=== PATIENT | male | born 1990 | race Caucasian/White ===

== ENCOUNTER 2016-08-08 20:16 | Emergency (ER) | payer OTHER ==
[~2016-08-08 20:16] MED LIST: CLAR10TA13 PO
[2016-08-08 20:18] VITALS: BP 154/78; PULSE 75; RESP 16; TEMP 98.9; O2SAT 100
[2016-08-08] MEDS ORDERED: BACT800T5 PO (20:59)
[2016-08-08] MEDS ORDERED: CEPH-460 PO (20:59)
--- NOTE | 2016-08-08 20:59 | PD ---
HPI Chief Complaint: Lump, Cyst, Hernia Time Seen by Provider: 20:57 Travel History International Travel<30 days: No Contact w/Intl Traveler<30days: No Traveled to known affect area: No History of Present Illness HPI 26-year-old male with no significant medical history presents to the emergency department for evaluation of an abscess in his right axilla. Patient states he noticed it about a week ago. He states today in the shower it began to drain purulent drainage but stopped shortly after starting. Reports pain 6 out of 10 on the area. No fever or chills. No new exposures. No other symptoms to report. PFSH Past Medical History Medical History: Denies Significant Hx Social History Alcohol Use: Yes ("COUPLE DRINKS PER WEEK") Tobacco Use: No Allergies-Medications (Allergen,Severity, Reaction): Coded Allergies: Cat Dander (Verified Allergy, Severe, RESP DISTRESS, 08/08/16) Reported Meds & Prescriptions Reported Meds & Active Scripts Active Ibuprofen 800 Mg Tab 800 Mg PO Q8H PRN Keflex (Cephalexin) 500 Mg Cap 500 Mg PO Q6H 5 Days Bactrim DS (Sulfamethoxazole-Trimethoprim) 800-160 Mg Tab 1 Tab PO BID Review of Systems Except as stated in HPI: all other systems reviewed are Neg Physical Exam Narrative GENERAL: Well-nourished, well-developed patient in no acute distress SKIN: There is an indurated area in the right axilla which measures about 2 cm in diameter. It is minimally fluctuant but there is no pointing or drainage. There is a zone of inflammation around it but no lymphangitis. HEAD: Normocephalic. EYES: No scleral icterus. No injection or drainage. NECK: Supple, trachea midline. No JVD or lymphadenopathy. CARDIOVASCULAR: Regular rate and rhythm without murmurs, gallops, or rubs. RESPIRATORY: Breath sounds equal bilaterally. No accessory muscle use. Data Data Last Documented VS Vital Signs Date Time Temp Pulse Resp B/P Pulse Ox O2 Delivery O2 Flow Rate FiO2 08/08/16 20:18 98.9 75 16 154/78 100 Room Air Orders Sulfamet-Trimeth Ds 800-160 Mg (Bactrim (08/08/16 21:00) Cephalexin (Keflex) (08/08/16 21:00) [facility] Medical Decision Making Medical Screen Exam Complete: Yes Emergency Medical Condition: Yes Medical Record Reviewed: Yes Differential Diagnosis Abscess versus folliculitis versus erysipelas versus contact dermatitis Narrative Course 26-year-old male presents to emergency department for evaluation of an abscess in his right axilla. ID is complete however no purulent drainage is obtained. Culture was not sent. Patient will be started on oral antibiotics. He is encouraged to follow-up with a primary care provider and return immediately with any acute worsening symptoms. Procedures Procedure Narrative INCISION AND DRAINAGE OF ABSCESS: The area was prepped and was sterilely draped. Topical ethyl chloride was used to anesthetize the area. The area was properly anesthetized. A number 11 scalpel was used to make a 1-cm incision across the area of the abscess. Cultures were not obtained. The abscess was drained an irrigated with normal saline. Patient tolerated this well. Diagnosis Primary Impression: Abscess of right axilla Referrals: Primary Care Physician Patient Instructions: Abscess Incision and Drainage (ED), General Instructions Additional Instructions: Warm compresses to the affected area Follow-up with a primary care provider You have been giving you first dose of antibiotics here in the emergency department. Start antibiotics in the morning and take them until they are all gone Return immediately to the emergency department with any acute worsening of symptoms Med/Other Pt SpecificInfo: Prescription(s) given Scripts Ibuprofen 800 Mg [id number] Mg PO Q8H PRN (Pain/Inflammation) #30 TAB Ref 0 Prov:Ariana Hernandez 08/08/16 Cephalexin (Keflex)500 Mg [id number] Mg PO Q6H 5 Days Ref 0 Prov:Ariana Hernandez 08/08/16 Sulfamethoxazole-Trimethoprim (Bactrim DS)800-160 Mg Tab1 Tab PO BID #20 TAB Ref 0 Prov:Ariana Hernandez 08/08/16 Disposition: 01 DISCHARGE HOME Condition: Stable Ariana Hernandez August 08, 2016 20:59
[2016-08-08] MEDS ORDERED: SULFAMETHOXAZOLE-TRIMETHOPRIM DS 800-160 MG TAB PO ONE (21:00)
[2016-08-08] MEDS ORDERED: CEPHALEXIN MONOHYDRATE 500 MG CAP PO ONE (21:00)
[2016-08-08] MEDS ORDERED: IBUP800T23 PO (21:06)
== END 2016-08-08 21:24 | disposition home or self-care (01) ==
LOC: NEPK 20:16
DX: L02.411 Cutaneous abscess of right axilla (principal)
CPT/HCPCS: 10060